=== PATIENT | male | born 1935 | race Caucasian/White ===

== ENCOUNTER 2018-09-26 15:00 | Emergency (ER) | payer OTHER, MEDICAID ==
[2018-09-26] MEDS ORDERED: METOCLOPRAMIDE 10 MG/2 ML VIAL IVP ONE (15:23)
[2018-09-26] MEDS ORDERED: KETOROLAC 30 MG/1 ML SDV IVP ONE (15:23)
== END 2018-09-26 17:24 | disposition home or self-care (01) ==
DX: R51 Headache (principal); Z87.820 Personal history of traumatic brain injury
CPT/HCPCS: 70450; 96374; 96375; 99285; J1885; J2765

== ENCOUNTER 2018-10-17 20:52 | Emergency (ER) | payer OTHER, MEDICAID ==
--- NOTE | 2018-10-17 21:24 | EDPHY ---
H & P Time Seen by Provider: 10/17/18 21:16 HPI/ROS: CHIEF COMPLAINT: Per triage note "head numbness," per the patient I had a "memory block" HISTORY OF PRESENT ILLNESS: Patient transported from [facility]. The triage note says head numbness, the patient denies headache. He tells me "I had anxiety" and he has difficulty with his memory. Here he really has no complaints. He tells me he does not know why he is here. He apparently gets frequent headaches according to his ED visit dated 2018 at which time he had a negative head CT scan. REVIEW OF SYSTEMS: Eye: no change in vision or double vision ENT: no sore throat or earache Cardiac: No chest pain Pulmonary: Not short of breath Abdomen: No vomiting or abdominal pain Musculoskeletal: No neck pain Skin: no rash Neuro: no headache Constitutional: no fever : no urinary symptoms A comprehensive 10 point review of systems is otherwise negative aside from elements mentioned in the history of present illness. PAST MEDICAL HISTORY: Includes dementia, hypertension, history of traumatic brain injury, hyperlipidemia, low back pain Social history: Lives at [facility]. General Appearance: Alert and conversant, cooperative. Eyes: No scleral icterus. Pupils equal and reactive. ENT, Mouth: Normal mucous membranes. No hemotympanum, normal tympanic membranes. Respiratory: Normal respiratory effort, breath sounds equal, lungs are clear to auscultation. Cardiovascular: Regular rate and rhythm. Gastrointestinal: Abdomen is soft and non tender. Neurological: Patient is alert and face is symmetric. He has some dementia and poor short-term memory. He is able to follow commands and is speech is fluent. He has good core driller helper strength and good range of motion of all extremities actively. Skin: Warm and dry, no rashes. Musculoskeletal: No spinal tenderness, no meningeal signs. Psychiatric: Not agitated. Emergency Department course/MDM: Patient presents with head numbness and self-described anxiety and poor memory which are baseline conditions for him. I think it is unlikely that he has great vessel dissection, CY[employer] infection, intracranial mass or bleed. He has baseline gait instability per his discharge summary from previous admission in June of 2015. However Giovanna Peguero says that now typically walks without assistance. Plan for labs, head CT; CT head unchanged per Cheri except right maxillary sinus, 2225. Up ambulatory, viewed by personally by myself in the room. I think he is stable for discharge back to [facility]. Smoking Status: Former smoker Constitutional: Initial Vital Signs Temperature (C) 36.7 C 10/17/18 20:55 Heart Rate 58 L 10/17/18 20:55 Respiratory Rate 16 10/17/18 20:55 Blood Pressure 118/71 10/17/18 20:55 O2 Sat (%) 94 10/17/18 20:55 O2 Delivery Mode Room Air Allergies/Adverse Reactions: Penicillins Allergy (Severe, Verified 10/17/18 20:55) Swelling/neck,face,throat Home Medications: Medication Instructions Recorded Lisinopril [Zestril 40 mg (*)] 40 mg PO DAILY 06/11/15 Escitalopram Oxalate [Lexapro 10 20 mg PO DAILY #60 tab 06/12/15 MG] LEVOTHYROXINE SODIUM [Tirosint 50 mcg PO DAILY #60 06/12/15 50mcg] Multivitamins W-Minerals [Thera M 1 each PO DAILY #0 tab 06/12/15 Plus Tablet (*)] Medical Decision Making - Diagnostics Imaging Results: Imaging Impressions Head CT 10/17/18 21:35 Impression: 1. Senescent features, with no acute intracranial abnormality identified on this unenhanced CT evaluation. 2. Interval development of some right maxillary and bilateral ethmoid mucosal thickening/mild fluid since 09/26/18. Does the patient have any focal tenderness? If there is further clinical concern regarding the patient's symptoms, MR imaging is suggested, if not otherwise contraindicated. Findings were discussed with GALA FLORES MD at 22:24, on 10/17/2018. - Data Points Laboratory Results: Laboratory Results 10/17/18 21:47 10/17/18 21:47 10/17/18 10/17/18 21:47 21:47 WBC 4.58 10^3/uL 10^3/uL (3.80-9.50) RBC 3.73 10^6/uL L 10^6/uL (4.40-6.38) Hgb 11.3 g/dL L g/dL (13.7-17.5) Hct 33.8 % L % (40.0-51.0) MCV 90.6 fL fL (81.5-99.8) MCH 30.3 pg pg (27.9-34.1) MCHC 33.4 g/dL g/dL (32.4-36.7) RDW 14.7 % % (11.5-15.2) Plt Count 200 10^3/uL 10^3/uL (150-400) MPV 10.1 fL fL (8.7-11.7) Neut % (Auto) 41.9 % % (39.3-74.2) Lymph % (Auto) 42.8 % % (15.0-45.0) [place] % (Auto) 8.5 % % (4.5-13.0) Eos % (Auto) 5.5 % % (0.6-7.6) Baso % (Auto) 0.9 % % (0.3-1.7) Nucleat RBC Rel Count 0.0 % % (0.0-0.2) Absolute Neuts (auto) 1.92 10^3/uL 10^3/uL (1.70-6.50) Absolute Lymphs (auto) 1.96 10^3/uL 10^3/uL (1.00-3.00) Absolute Monos (auto) 0.39 10^3/uL 10^3/uL (0.30-0.80) Absolute Eos (auto) 0.25 10^3/uL 10^3/uL (0.03-0.40) Absolute Basos (auto) 0.04 10^3/uL 10^3/uL (0.02-0.10) Absolute Nucleated RBC 0.00 10^3/uL 10^3/uL (0-0.01) Immature Gran % 0.4 % % (0.0-1.1) Immature Gran # 0.02 10^3/uL 10^3/uL (0.00-0.10) Sodium 139 mEq/L mEq/L (135-145) Potassium 3.9 mEq/L mEq/L (3.5-5.2) Chloride 109 mEq/L mEq/L (97-110) Carbon Dioxide 20 mEq/l L mEq/l (22-31) Anion Gap 10 mEq/L mEq/L (6-14) BUN 25 mg/dL H mg/dL (7-23) Creatinine 1.2 mg/dL mg/dL (0.7-1.3) Estimated GFR 58 Glucose 96 mg/dL mg/dL (70-100) Calcium 8.7 mg/dL mg/dL (8.5-10.4) Departure - Departure Disposition: Home, Routine, Self-Care Clinical Impression: Memory impairment Condition: Good Instructions: Cognitive Disorders after Traumatic Brain Injury (ED) Referrals: SETH MELENDEZ [Other] - As per Instructions
[2018-10-17 21:56] LABS: PLATELET COUNT 200 10^3/uL (150-400)
[2018-10-17 22:40] VITALS: BP 111/74
== END 2018-10-17 23:08 | disposition home or self-care (01) ==
LOC: EDUNIT#
DX: F09 Unspecified mental disorder due to known physiological condition (principal); F03.90 Unspecified dementia, unspecified severity, without behavioral disturbance, psychotic disturbance, mood disturbance, and anxiety; I10 Essential (primary) hypertension; E78.5 Hyperlipidemia, unspecified; Z87.820 Personal history of traumatic brain injury